=== PATIENT | male | born 1970 | race African-American/Black ===

== ENCOUNTER 2023-01-31 13:35 | Outpatient (CLI) | payer OTHER ==
[2023-01-31 16:15] LABS: Hemoglobin 11.2 g/dL (13.5-17.5); Mean Corpuscular HGB CONC 31.3 g/dL (32.0-36.0); Mean Corpuscular Hemoglobin 24.7 pg (27.0-33.0); Mean Corpuscular Volume 78.9 fl (81.2-95.1); Mean Platelet Volume 9.9 fl (7.4-10.4); Platelet Count 243 10x3/uL (150-450); RBC Distribution Width 16.2 % (11.5-14.5); Red Blood Cell (RBC) Count 4.54 10x6/uL (4.32-5.72); White Blood Cell (WBC) Count 6.9 10x3/uL (3.5-10.5)
[2023-01-31 16:28] LABS: Anion Gap 20 mmol/L (10-20); BUN (Urea Nitrogen) 45 mg/dL (8.4-25.7); Calc. Creatinine Clearance 0 mL/min (70-130); Carbon Dioxide 27 mmol/L (22-29); Chloride 97 mmol/L (98-107); Estimated GFR 32; Glucose 91 mg/dL (70-105); Potassium 3.8 mmol/L (3.5-5.1); Sodium 140 mmol/L (136-145)
[2023-01-31 20:23] LABS: Hemoglobin A1c 5.9 % (4.0-6.0)
== END 2023-01-31 13:36 | disposition home or self-care (01) ==
LOC: CSHLAB 13:35
PROVIDERS: ATTEND Orthopaedic Surgery
DX: Z01.818 Encounter for other preprocedural examination (principal); M25.871 Other specified joint disorders, right ankle and foot
CPT/HCPCS: 80048; 83036; 85027; 93005; 93010

== ENCOUNTER 2023-02-05 10:08 | Observation (INO) | payer OTHER ==
[2023-01-31 14:41] VITALS: BMI 61.4
[2023-02-05] MEDS ORDERED: SUGAMMADEX SODIUM 200 MG/2 ML VIAL ONE (13:08)
[2023-02-05] MEDS ORDERED: Succinylcholine 200 MG/10 ml SYRINGE FS ONE (13:13)
[2023-02-05] MEDS ORDERED: Neomycin-Polymyxin 1 ML AMP ONE (13:16)
[2023-02-05] MEDS ORDERED: CEFAZOLIN 2 GM VIAL ONE (13:29)
[2023-02-05] MEDS ORDERED: Bupivacaine PF 0.5% 30 ML VIAL ONE (14:35)
[2023-02-05] MEDS ORDERED: PHENYLEPHRINE-NS 100 MCG/ML 10 ML SYRINGE ONE (14:39)
[2023-02-05] MEDS ORDERED: Fentanyl 100 MCG/2 ML VIAL ONE (15:17)
[2023-02-05] MEDS ORDERED: Ketorolac Tromethamine 30 MG/ML VIAL ONE (15:42)
[2023-02-05] MEDS ORDERED: Morphine 2 MG/ML VIAL SLOW IVP PRN (19:58)
[2023-02-05] MEDS ORDERED: HYDROcodone/Acetaminophen 7.5/325 mg Tablet PO PRN (19:59)
[2023-02-05] MEDS ORDERED: Morphine 4 MG/ML VIAL SLOW IVP PRN (19:59)
[2023-02-05] MEDS ORDERED: Ondansetron ODT 4 MG TAB PO PRN (20:00)
[2023-02-05] MEDS: HYDROcodone/Acetaminophen 7.5/325 mg Tablet PO PRN (20:09)
[2023-02-05] MEDS ORDERED: Acetaminophen/Codeine 30-300mg Tablet PO PRN (20:22)
[2023-02-05] MEDS ORDERED: Ventolin HFA Inhaler 60 PUFF INHALER INH PRN (20:23)
[2023-02-05] MEDS ORDERED: SACUBITRIL PO SCH (21:00)
[2023-02-05] MEDS ORDERED: VALSARTAN PO SCH (21:00)
[2023-02-05] MEDS: Atorvastatin Calcium 20 MG TAB PO SCH (22:37)
[2023-02-05] MEDS: Furosemide 20 MG TAB PO SCH (22:37)
[2023-02-05] MEDS: Allopurinol 100 MG TAB PO SCH (22:37)
[2023-02-06] MEDS: HYDROcodone/Acetaminophen 7.5/325 mg Tablet PO PRN ×4 (01:18→18:35)
[2023-02-06] MEDS: Empagliflozin 10 MG TAB PO SCH (08:51)
[2023-02-06] MEDS: Allopurinol 100 MG TAB PO SCH ×2 (08:51→21:46)
[2023-02-06] MEDS: Aspirin 81 mg Enteric Coated Tablet PO SCH (08:51)
[2023-02-06] MEDS: Carvedilol 6.25 MG TAB PO SCH ×2 (08:51→16:27)
[2023-02-06] MEDS: Folic Acid 1 MG TAB PO SCH (08:52)
[2023-02-06] MEDS: Furosemide 20 MG TAB PO SCH ×2 (08:52→21:46)
[2023-02-06] MEDS: Clopidogrel Bisulfate 75 MG TAB PO SCH (08:52)
[2023-02-06] MEDS: Atorvastatin Calcium 20 MG TAB PO SCH (21:46)
[2023-02-07] MEDS: HYDROcodone/Acetaminophen 7.5/325 mg Tablet PO PRN ×2 (02:20→09:19)
[2023-02-07] MEDS: Allopurinol 100 MG TAB PO SCH (09:18)
[2023-02-07] MEDS: Clopidogrel Bisulfate 75 MG TAB PO SCH (09:18)
[2023-02-07] MEDS: Empagliflozin 10 MG TAB PO SCH (09:19)
[2023-02-07] MEDS: Aspirin 81 mg Enteric Coated Tablet PO SCH (09:19)
[2023-02-07] MEDS: Furosemide 20 MG TAB PO SCH (09:19)
[2023-02-07] MEDS: Carvedilol 6.25 MG TAB PO SCH (09:19)
[2023-02-07] MEDS ORDERED: Ventolin HFA Inhaler 60 PUFF INHALER INH PRN (12:37)
[2023-02-07] MEDS ORDERED: Acetaminophen/Codeine 30-300mg Tablet PO PRN (12:37)
[2023-02-07 13:38] VITALS: BP 128/69; TEMP 98.1
[2023-02-07] MEDS ORDERED: Furosemide 20 MG TAB PO SCH (21:00)
[2023-02-07] MEDS ORDERED: Atorvastatin Calcium 20 MG TAB PO SCH (21:00)
[2023-02-07] MEDS ORDERED: Allopurinol 100 MG TAB PO SCH (21:00)
[2023-02-07] MEDS ORDERED: Sacubitril 49 MG/Valsartan 51 MG TABLET PO SCH (21:00)
[2023-02-07] MEDS ORDERED: Carvedilol 6.25 MG TAB PO SCH (21:00)
[2023-02-08] MEDS ORDERED: Aspirin 81 mg Enteric Coated Tablet PO SCH (09:00)
[2023-02-08] MEDS ORDERED: Clopidogrel Bisulfate 75 MG TAB PO SCH (09:00)
[2023-02-08] MEDS ORDERED: Folic Acid 1 MG TAB PO SCH (09:00)
[2023-02-08] MEDS ORDERED: Empagliflozin 10 MG TAB PO SCH (09:00)
== END 2023-02-07 13:25 ==
LOC: CSHSDC 10:08 → CSHTELE 19:06 → INTOOBSV 19:06
PROVIDERS: ADMIT Orthopaedic Surgery; ATTEND Orthopaedic Surgery
PROC: 0SNF0ZZ Release Right Ankle Joint, Open Approach (ICD-10-PCS; principal; 2023-02-05)
PROC: 0YP90YZ Removal of Other Device from Right Lower Extremity, Open Approach (ICD-10-PCS; 2023-02-05)
DX: T84.84XA Pain due to internal orthopedic prosthetic devices, implants and grafts, initial encounter (principal); M19.071 Primary osteoarthritis, right ankle and foot; M21.6X1 Other acquired deformities of right foot; M25.871 Other specified joint disorders, right ankle and foot; E66.01 Morbid (severe) obesity due to excess calories; I25.10 Atherosclerotic heart disease of native coronary artery without angina pectoris; E78.5 Hyperlipidemia, unspecified; E11.9 Type 2 diabetes mellitus without complications; G47.33 Obstructive sleep apnea (adult) (pediatric); I12.9 Hypertensive chronic kidney disease with stage 1 through stage 4 chronic kidney disease, or unspecified chronic kidney disease; N18.30 Chronic kidney disease, stage 3 unspecified; Y83.1 Surgical operation with implant of artificial internal device as the cause of abnormal reaction of the patient, or of later complication, without mention of misadventure at the time of the procedure; Z95.0 Presence of cardiac pacemaker; Z79.899 Other long term (current) drug therapy; Z88.6 Allergy status to analgesic agent; Z88.8 Allergy status to other drugs, medicaments and biological substances; Z68.43 Body mass index [BMI] 50.0-59.9, adult
CPT/HCPCS: 20680; 27610; 73600; 82962 ×3; 97530 ×2; 97535; G0378 ×3; 36416; J1885; J3010; S0020